=== PATIENT | female | born 1980 | race Caucasian/White ===

== ENCOUNTER → 2020-04-20 | Outpatient (CLI) | payer OTHER ==
[~2020-04-20] MED LIST: DEPO-PROVE150 MG/11 IM; LEXAPRO20 MG PO; WELLBUTRIN XL150 MG PO
== END ==
LOC: M.LAB 09:13
PROVIDERS: ATTEND Surgery
DX: Z01.818 Encounter for other preprocedural examination (principal); Z11.59 Encounter for screening for other viral diseases

== ENCOUNTER → 2020-04-25 | Day surgery (SDC) | payer OTHER ==
[~2020-04-25] MED LIST changes: +NORCO 5-325 TA1 EAC2 PO
[2020-04-25 09:15] LABS: HEMATOCRIT 41.3 % (37.0-47.0); HEMOGLOBIN 14.7 gm/dL (12.0-15.0)
[2020-04-25 09:23] LABS: CALCIUM 8.8 mg/dL (8.5-10.1); CREATININE 1.1 mg/dL (0.6-1.3); POTASSIUM 3.8 mmol/L (3.5-5.1)
[2020-04-25 09:28] LABS: ALBUMIN 4.2 g/dL (3.4-5.0); TOTAL BILIRUBIN 0.3 mg/dL (<0.1-1.0); TOTAL PROTEIN 7.5 g/dL (6.4-8.2)
--- NOTE | 2020-04-27 13:08 | PATH ---
[address] [address] PATHOLOGY RPT PROCEDURE Name: YANNI RODRIGES Room: [facility] Rigo#: [id number] Admission: 04/25/20 Date of : 82 Discharge: Report #: [id number] Path Case #: [id number] [facility] Accession Number: [id number] . 01 Material submitted: . gallbladder - GALLBLADDER AND CONTENTS . 01 Clinical history: . Calculus of gallbladder . 02 Diagnosis: Gallbladder and contents: - Chronic cholecystitis. See comment. (KRISTA:monty; 04/27/2020) S 04/27/2020 0959 Local . 02 Comment: No gallstones were identified in the submitted specimen. (KRISTA:monty; 04/27/2020) . 02 Electronically signed: . Braeden Dalton MD, Pathologist NPI- [id number] . 01 Gross description: . The specimen is received in formalin, labeled "Yanni Rodriges, gallbladder and contents" and consists of an intact purple gallbladder measuring 4.8 x 1.6 x 1.4 cm. The margin is inked. Opening reveals green bile and no stones are present. The mucosa is green and granular with a wall thickness of 0.1 cm. No gross lesions or lymph nodes are identified. Dry Paste Supervisor sections are submitted in A1. (DRISS; 04/25/2020) STUART/STUART 04/27/2020 [facility] Local . 02 Pathologist provided ICD-10: K81.1 . 02 CPT . 385192 Specimen Comment: A courtesy copy of this report has been sent to [phone] Specimen Comment: [id number] Specimen Comment: Report sent to / DR PEREIRA Performed at: [address] [id number] MD Jacinto Bedoya MD Phone: [phone] Performed at: [address] [address] PATHOLOGY RPT PROCEDURE Name: RODRIGESYANNI ANN Room: [facility] M.Franko.#: [id number] Admission: 04/25/20 Date of : 82 Discharge: Report #: [id number] Path Case #: [id number] [address] [id number] MD Braeden Dalton MD Phone: [phone]
--- NOTE | 2020-04-28 13:14 | OP ---
[facility] [address] [place] [address] OPERATIVE REPORT Name: DANE ARTHUR Room: [facility].#: [id number] Admission: 04/25/20 Attend Phys: Luiz Hamilton Discharge: Date of : 82 Report #: [id number] THIS REPORT FOR: //name// cc: Rene Means Robin L. FNP THIS REPORT FOR: //name// CC: Luiz Means DATE OF SERVICE: 04/25/2020 PREOPERATIVE DIAGNOSIS: Chronic cholecystitis. POSTOPERATIVE DIAGNOSIS: Chronic cholecystitis. OPERATION: Laparoscopic cholecystectomy. SURGEON: Luiz Hamilton MD ANESTHESIA: General. ESTIMATED BLOOD LOSS: Minimal. SPECIMEN: Gallbladder. DESCRIPTION OF PROCEDURE: After informed consent was obtained, the patient was brought to the operating room and placed supine. SCDs were placed and working, preoperative antibiotics were administered, and general anesthesia was induced. The abdomen was prepped and draped in the usual sterile fashion. A 10 mm incision was made below the umbilicus. Fascia was incised and a trocar was placed. Pneumoperitoneum was established. Three right upper quadrant 5 mm ports were placed. Gallbladder was then grasped at the fundus and retracted cephalad. Infundibulum was grasped and retracted laterally. I dissected out the cystic duct and the cystic artery. The cystic duct and artery were clipped and ligated leaving 2 clips on the remaining duct and one on the remaining artery. Gallbladder was then taken off the liver bed with electrocautery. It was placed into an Endopouch and removed. The fascia was then closed with a [id number] 0 Vicryl. Skin was closed with 4-0 Monocryl. Incisions were sealed with Dermabond. COMPLICATIONS: [place] [address] OPERATIVE REPORT Name: DANE ARTHUR Room: [facility]#: [id number] Admission: 04/25/20 Attend Phys: Luiz Hamilton Discharge: Date of : 82 Report #: [id number] DISPOSITION: The patient was taken to recovery in satisfactory condition. <ELECTRONICALLY SIGNED> By: Luiz Hamilton MD 04/28/20 1314 1137 [id number] Hamilton MD /nt
== END | disposition home or self-care (01) ==
LOC: M.SUR 08:44
PROVIDERS: ATTEND Surgery
DX: K80.10 Calculus of gallbladder with chronic cholecystitis without obstruction (principal); Z79.899 Other long term (current) drug therapy; Z88.8 Allergy status to other drugs, medicaments and biological substances